=== PATIENT | female | born 1940 | race African-American/Black ===

== ENCOUNTER 2016-10-17 05:05 | Day surgery (SDC) | payer OTHER ==
[~2016-10-17 05:05] MED LIST: ACTOPLUS M15 MG/500 PO; DETROL1 PO; DIOVAN HCT320 MG/25 PO; FLEX PO; LEVOTHYROXIN175 MCG PO; MULTI-VIT HP PO; NEUR300 PO; NORV10 PO; OPANA ER15 MG PO; PERCOCET 7.5/321 TAB PO; PROAIR HFA INH; WELL75 PO; ZOCOR10 PO; ZOL100 PO
== END 2016-10-17 08:52 | disposition home or self-care (01) ==
LOC: SDC 05:05
PROVIDERS: Orthopaedic Surgery
PROC: 3E0R3BZ Introduction of Anesthetic Agent into Spinal Canal, Percutaneous Approach (ICD-10-PCS; 2016-10-17)
PROC: 3E0R33Z Introduction of Anti-inflammatory into Spinal Canal, Percutaneous Approach (ICD-10-PCS; principal; 2016-10-17 09:00)
DX: M54.16 Radiculopathy, lumbar region (principal); I10 Essential (primary) hypertension; I25.10 Atherosclerotic heart disease of native coronary artery without angina pectoris; Z88.5 Allergy status to narcotic agent; J44.9 Chronic obstructive pulmonary disease, unspecified; J45.909 Unspecified asthma, uncomplicated; Z98.1 Arthrodesis status; Z96.653 Presence of artificial knee joint, bilateral; M19.90 Unspecified osteoarthritis, unspecified site; Z90.710 Acquired absence of both cervix and uterus; Z98.51 Tubal ligation status; F41.9 Anxiety disorder, unspecified; F32.9 Major depressive disorder, single episode, unspecified; Z98.890 Other specified postprocedural states
CPT/HCPCS: 82962; J1040; J2250; J3010; Q9967